=== PATIENT | female | born 1960 | race Caucasian/White ===

== ENCOUNTER 2022-08-24 23:08 | Emergency (ER) | payer BC ==
[~2022-08-24] VITALS: Ht 165.1 cm; Wt 131.5 kg
[2022-08-25 00:38] LABS: Albumin, Blood 3.3 g/dL (3.4-5.0); Albumin/Globulin Ratio 1.1 (0.8-1.8); Bilirubin, Total 0.3 mg/dL (0.1-1.0); Bun/Creatinine Ratio 23.2 (12.0-20.0); Calcium, Blood 8.2 mg/dL (8.5-10.1); Creatinine, Blood 0.86 mg/dL (0.40-1.00); Potassium, Blood 4.3 mmol/L (3.5-5.5); Total Protein, Blood 6.3 g/dL (6.4-8.2)
[2022-08-25 00:56] LABS: International Normalized Ratio 1.1; Prothrombin Time Results 11.5 Sec (9.7-11.5)
== END 2022-08-25 02:11 | disposition home or self-care (01) ==
LOC: ER 23:08
PROVIDERS: Student in an Organized Health Care Education/Training Program
DX: T39.391A Poisoning by other nonsteroidal anti-inflammatory drugs [NSAID], accidental (unintentional), initial encounter (principal); Z90.5 Acquired absence of kidney
CPT/HCPCS: 80053; 85610; 99283; J7030